=== PATIENT | female | born 1960 | race Hispanic/Latino ===

== ENCOUNTER 2017-02-14 19:03 | Observation (INO) | payer MEDICAID ==
[2017-02-14] MEDS ORDERED: TDAP Vaccine 0.5 mL Syr IM ONE (19:30)
[2017-02-14] MEDS ORDERED: Bacitracin 500 Units/gm Oint Foilpak UD TOP ONE (19:30)
--- NOTE | 2017-02-14 19:38 | ED PDOC ---
Arrival/HPI - General Chief Complaint: Trauma Time Seen by Provider: 02/14/17 19:07 Historian: Patient, EMS - History of Present Illness Narrative History of Present Illness (Text): 02/14/17 19:36 -year-old male who presents via EMS for falls and alleged intoxication. She was found outside the house falling down the street since she has been a small amount but she's not sure how she got here she has not from this challenge is not usually in [place]. She has a history of seizures and diabetes she denies any drug use does endorse moment of alcohol but she will not say how much. She has moderate abrasions to her face left facial pain Past Medical History - Infectious Disease Hx of Infectious Diseases: None - Reproductive Menopause: Yes - Neurological Hx Seizures: Yes - Psychiatric Hx Substance Use: No - Anesthesia Hx Anesthesia Reactions: No Family/Social History Smoking Status: Unknown If Ever Smoked Hx Alcohol Use: Yes Frequency of alcohol use: Socially Hx Substance Use: No Allergies/Home Meds Allergies/Adverse Reactions: Allergies No Known Allergies Allergy (Unverified 02/14/17 19:19) Home Medications: Home Meds Medication Instructions Recorded Confirmed Ibuprofen [Motrin Tab] 800 mg PO TID 02/14/17 02/14/17 Metformin ER [Glucophage XR] 500 mg PO BID 02/14/17 02/14/17 Ondansetron ODT [Zofran ODT] 4 mg PO Q8 02/14/17 02/14/17 Phenytoin Sodium Extended 100 mg PO TID 02/14/17 02/14/17 [Phenytoin Sodium Extended] carBAMazepine [Tegretol] 200 mg PO BID 02/14/17 02/14/17 Physical Exam Vital Signs Temp Pulse Resp BP Pulse Ox 02/15/17 02:53 98.8 F 99 H 20 162/75 H 94 L 02/14/17 19:16 98 F 120 H 20 161/107 H 98 Finger Stick Blood Glucose: 131 Medical Decision Making ED Course and Treatment: 02/15/17 01:56 MAXILLOFACIAL W/O CONTRAST: Creator : Meri Andrade FINDINGS: Prior left orbital floor fracture with hyperdense mesh placement. Subcutaneous soft tissue swelling left frontal and left maxillary regions. Slight angulation of the nasal bones to the left felt to be chronic. There is no significant fluid in the sinuses or mastoid air cells. No acute fractures. IMPRESSION: No acute fractures. 02/15/17 02:00 CT Head Without Intravenous Contrast: Creator : Meri Andrade FINDINGS: There is subcutaneous soft tissue swelling left maxillary and left frontal regions. There is sulcal prominence suggestive of atrophy. There is a left frontal parietal subdural collection measuring 9-11 mm in width. The majority of the collection is isodense to brain however there is an area of increased density posteriorly supportive of acute blood. No mass effect or midline shift. No intraparenchymal hemorrhage. No intracranial edema. No fluid in the sinuses or mastoid air cells. No depressed fractures. IMPRESSION: Left parietal subdural collection, the majority of which is isodense to brain however there is also a hyperdense component. The first possibility would be chronic collection with acute hemorrhage due to acute trauma. The other possibility is that the patient's reported trauma occurred several days prior with the densities representing evolution of subacute blood. 02/15/17 02:03 CERVICAL SPINE W/O CONTRAST: Creator : Meri Andrade FINDINGS: Right humeral plate and screws. There is no prevertebral soft tissue swelling. There are degenerative changes in the osseous structures with osteophyte formation. There is left Articular facet joint hypertrophy C2-3. The facet joints are well aligned. The vertebral body height is well maintained. No subluxation. No fractures. Small lymph nodes are noted throughout the neck. IMPRESSION: No acute injury. 02/15/17 02:[address] Sampson, who reccomends a repeat CT scan to watch for evolution. 02/15/17 03:04 Case discussed with technical operations vice president. Will admit to hospitalist care. - Lab Interpretations Lab Results: 02/14/17 20:15 02/14/17 20:15 Lab Results 02/14/17 20:15: Phenytoin < 3 L, Carbamazepine < 3 L 02/14/17 20:15: Alcohol, Quantitative 290 H 02/14/17 20:15: Sodium 146, Potassium 4.5, Chloride 103, Carbon Dioxide 19 L, Anion Gap 29 H, BUN 16, Creatinine 0.6 L, Est GFR ( Amer) > 60, Est GFR ( Non-Af Amer) > 60, Random Glucose 132 H, Calcium 9.8, Total Bilirubin 0.6, AST 73 H, ALT 41, Alkaline Phosphatase 116, Total Protein 7.8, Albumin 5.1 H, Globulin 2.6, Albumin/Globulin Ratio 2.0 H 02/14/17 20:15: PT 11.3, INR 1.05, APTT 24.7 02/14/17 20:15: WBC 9.1, RBC 4.00, Hgb 13.9, Hct 41.0, MCV 102.5, MCH 34.8, MCHC 33.9, RDW 15.1 H, Plt Count 222, MPV 9.7, Gran % 66.5, Lymph % (Auto) 24.2 , [place] % (Auto) 7.1 H, Eos % (Auto) 1.0 L, Baso % (Auto) 1.2, Gran # 6.06, Lymph # 2.2, [place] # 0.7 H, Eos # 0.1, Baso # 0.11 - RAD Interpretation Radiology Orders: 02/14/17 19:22 CERVICAL SPINE W/O CONTRAST [CT] Stat HEAD W/O CONTRAST [CT] Stat 02/14/17 19:29 MAXILLOFACIAL W/O CONTRAST [CT] Stat - Medication Orders Current Medication Orders: Discontinued Medications Bacitracin (Bacitracin) 3 ea TOP ONCE ONE Stop: 02/14/17 19:31 Last Admin: 02/14/17 21:22 Dose: 3 ea Sodium Chloride (Sodium Chloride 0.9%) 1,000 mls @ 999 mls/hr IV .Q1H1M STA Stop: 02/14/17 22:01 Last Admin: 02/14/17 21:21 Dose: 999 mls/hr eMAR Start Stop Document 02/14/17 21:21 SC (Rec: 02/14/17 21:22 SC [id number]) Intravenous Solution Start Date 02/14/17 Start Time 21:21 End Date 02/14/17 End time 22:22 Total Infusion Time 61 Phenytoin 1,000 mg/ Sodium (Chloride) 200 mls @ 240 mls/hr IVPB STAT STA Stop: 02/15/17 00:52 Last Admin: 02/15/17 01:46 Dose: 240 mls/hr eMAR Start Stop Document 02/15/17 01:46 SC (Rec: 02/15/17 02:46 SC [id number]) Intravenous Solution Start Date 02/15/17 Start Time 01:46 End Date 02/15/17 End time 02:46 Total Infusion Time 60 Lorazepam (Ativan) 1 mg IVP ONCE ONE PRN Reason: Protocol Stop: 02/14/17 22:03 Last Admin: 02/14/17 22:12 Dose: 1 mg IVP Administration Document 02/14/17 22:12 SC (Rec: 02/14/17 22:12 SC [id number]) Charges for Administration # of IVP Administrations 1 Lorazepam (Ativan) 2 mg PO ONCE ONE PRN Reason: Protocol Stop: 02/14/17 23:51 Last Admin: 02/15/17 01:02 Dose: 2 mg Tetanus/Reduced Diphtheria/Acell Pertussis (Boostrix Vaccine Inj) 0.5 ml IM .ONCE ONE Stop: 02/14/17 19:31 Last Admin: 02/14/17 22:11 Dose: 0.5 ml MAR Immunization Data Document 02/14/17 22:11 SC (Rec: 02/14/17 22:11 SC [id number]) Immunization Data Opt out of sending immunization data to No respository? Suppress immunization data to other No providers from registry? Vaccine Eligibility Yes Vaccine Information Sheet Given Yes Informed Consent Given Yes Vaccine Lot Number [id number] Site Given Right Deltoid Route Intramuscular Immunization Units ml Disposition/Present on Arrival - Present on Arrival History of DVT/PE: No History of Uncontrolled Diabetes: No Urinary Catheter: No History of Decub. Ulcer: No History Surgical Site Infection Following: None - Disposition Referrals: Rajwinder Cm MD [Primary Care Provider] - Follow up with primary Forms: [employer] ([place])
[2017-02-14 20:28] LABS: BASO # 0.11 K/mm3 (0.0-2.0); BASO % 1.2 % (0.0-3.0); EOS # 0.1 (0.0-0.7); GRAN # 6.06 (1.4-6.5); GRAN % 66.5 % (50.0-68.0); LYMPH # 2.2 (1.2-3.4); LYMPH % 24.2 % (22.0-35.0); MEAN CELL VOLUME 102.5 fl (80.0-105.0); MEAN CORPUSCULAR HEMOGLOBIN 34.8 pg (25.0-35.0); MEAN CORPUSCULAR HGB CONC 33.9 g/dl (31.0-37.0); MEAN PLATELET VOLUME 9.7 fl (7.0-11.0); MONO # 0.7 (0.1-0.6); MONO % 7.1 % (1.0-6.0); RED CELL DISTRIBUTION WIDTH 15.1 % (11.5-14.5); WHITE BLOOD COUNT 9.1 10^3/ul (4.5-11.0)
[2017-02-14 20:38] LABS: INR 1.05 (0.93-1.08); PARTIAL THROMBOPLASTIN TIME 24.7 Seconds (23.7-30.8)
[2017-02-14 20:41] LABS: ALKALINE PHOSPHATASE 116 U/L (38-126); ALT/SGPT 41 U/L (7-56); AST/SGOT 73 U/L (14-36); BILIRUBIN,TOTAL 0.6 mg/dL (0.2-1.3); BLOOD UREA NITROGEN 16 mg/dL (7-21); CALCIUM 9.8 mg/dL (8.4-10.5); CARBON DIOXIDE 19 mmol/L (21-33); CHLORIDE 103 mmol/L (95-110); GFR AFRICAN-AMERICAN > 60; GLUCOSE,RANDOM 132 mg/dL (70-110); POTASSIUM 4.5 mmol/L (3.6-5.0); SODIUM 146 mmol/L (132-148); TOTAL PROTEIN 7.8 g/dL (5.8-8.3)
[2017-02-14 20:43] LABS: CARBAMAZEPINE < 3 ug/mL (4.0-10.0)
[2017-02-14] MEDS ORDERED: Sodium Chloride 0.9% 1,000 ML IV STA (21:01)
[2017-02-15] MEDS ORDERED: PHENYTOIN IVPB STA (00:03)
[2017-02-15] MEDS ORDERED: SODIUM CHLORIDE 0.9% IVPB STA (00:03)
--- NOTE | 2017-02-15 00:59 | CT ---
EXAM: CT Head Without Intravenous Contrast EXAM DATE/TIME: 02/14/2017 7:22 PM CLINICAL HISTORY: 57 years old, female; Injury or trauma; Fall; Initial encounter; Concussion / head injury; Additional info: Fall trauma TECHNIQUE: Axial computed tomography images of the head/brain without intravenous contrast. All CT scans at this facility use one or more dose reduction techniques, viz.: automated exposure control; ma/kV adjustment per patient size (including targeted exams where dose is matched to indication; i.e. head); or iterative reconstruction technique. COMPARISON: No relevant prior studies available. FINDINGS: There is subcutaneous soft tissue swelling left maxillary and left frontal regions. There is sulcal prominence suggestive of atrophy. There is a left frontal parietal subdural collection measuring 9-11 mm in width. The majority of the collection is isodense to brain however there is an area of increased density posteriorly supportive of acute blood. No mass effect or midline shift. No intraparenchymal hemorrhage. No intracranial edema. No fluid in the sinuses or mastoid air cells. No depressed fractures. IMPRESSION: Left parietal subdural collection, the majority of which is isodense to brain however there is also a hyperdense component. The first possibility would be chronic collection with acute hemorrhage due to acute trauma. The other possibility is that the patient's reported trauma occurred several days prior with the densities representing evolution of subacute blood.
--- NOTE | 2017-02-15 01:11 | CT ---
EXAM: CT Maxillofacial Without Intravenous Contrast EXAM DATE/TIME: 02/14/2017 7:29 PM CLINICAL HISTORY: 57 years old, female; Injury or trauma; Fall; Initial encounter; Abrasion; Cheek bone; Left; Additional info: Fall left face TECHNIQUE: Axial computed tomography images of the face without intravenous contrast. All CT scans at this facility use one or more dose reduction techniques, viz.: automated exposure control; ma/kV adjustment per patient size (including targeted exams where dose is matched to indication; i.e. head); or iterative reconstruction technique. Coronal and sagittal reformatted images were created and reviewed. COMPARISON: No relevant prior studies available. FINDINGS: Prior left orbital floor fracture with hyperdense mesh placement. Subcutaneous soft tissue swelling left frontal and left maxillary regions. Slight angulation of the nasal bones to the left felt to be chronic. There is no significant fluid in the sinuses or mastoid air cells. No acute fractures. IMPRESSION: No acute fractures.
--- NOTE | 2017-02-15 01:20 | CT ---
EXAM: CT Cervical Spine Without Intravenous Contrast EXAM DATE/TIME: 02/14/2017 7:22 PM CLINICAL HISTORY: 57 years old, female; Injury or trauma; Fall; Initial encounter; Sprain or strain, cervical ligaments TECHNIQUE: Axial computed tomography images of the cervical spine without intravenous contrast. All CT scans at this facility use one or more dose reduction techniques, viz.: automated exposure control; ma/kV adjustment per patient size (including targeted exams where dose is matched to indication; i.e. head); or iterative reconstruction technique. Coronal and sagittal reformatted images were created and reviewed. COMPARISON: No relevant prior studies available. FINDINGS: Right humeral plate and screws. There is no prevertebral soft tissue swelling. There are degenerative changes in the osseous structures with osteophyte formation. There is left Articular facet joint hypertrophy C2-3. The facet joints are well aligned. The vertebral body height is well maintained. No subluxation. No fractures. Small lymph nodes are noted throughout the neck. IMPRESSION: No acute injury.
[2017-02-15 02:54] VITALS: BP 162/75; TEMP 98.8; O2SAT 94
[2017-02-15] MEDS ORDERED: Multivitamin (MVI) 10 ML, Thiamine 100 MG, Folic Acid 1 MG in Sodium Chloride 0.9% 1,00... IV ONE (03:51)
--- NOTE | 2017-02-15 04:19 | CP.PCM.HP ---
Addendum entered and electronically signed by Sp Walker DO 05:25: Correction for PPX: -Protonix/SCD's - Despite a Michelle score of 6, patient is here for an acute vs subacute intracranial bleed, mechanical PPXS is indicated Addendum entered and electronically signed by Sp Walker DO 05:21: PPX - Heparin/Protonix - Michelle Score 6 Original Note: <Sp Walker - Last Filed: 02/15/17 04:03> History of Present Illness - History of Present Illness History of Present Illness: H/P For IM - TKS DO, PGY-1 CC: EtOH Intoxication and Fall HPI: 57 F w/ PMHx pertinent for seizure disorder and alcohol abuse presents s/p a fall with EtOH intoxication. Patient states that she was sitting on the steps of where she lives in [place], [place] earlier today around 2PM after drinking about a fifth of hard liquor. Pt states that she thinks she fell down the steps and passed out, then the next thing she remembers is that she woke up on the street with two women looking over her. She asked them where she was and they informed her that she was in [place]. RE: her fall, pt states that she also fell about a week ago and was admitted to [facility], where she stayed for two days and was told that she had an acute intracranial bleed. She does not know what treatment she was given there. At present, patient complains only of a headache and is uncomfortable in her bed. Pt denies f/ch/cp/sob/n/v/d/dysuria/frequency/urgency/hematuria/hematochezia/ hematemesis. No further complaints. PSHx: Arm surgery - broke her arm after a seizure PMHx: Seizure disorder, Chronic HAs, DM All: NKDA SocHx: + EtOH; denies tobacco, illicits Hosp: Recent hospitalization at [facility] for a fall FamHx: Bone CA Meds: Carbamazepine 200 mg po bid; Phenytoin 100 mg po tid; Ibuprofen 800 po tid; Metformin 500 po bid ROS: Const: pt denies fever, chills, generalized weakness Hand Neck: +heart ENT: pt denies dysphagia, otalgia, hearing deficit, rhinorrhea Eyes: pt denies sudden loss of vision, diplopia, blurred vision MSK: pt denies muscle stiffness, joint pain, extremity cramping Cardio: pt denies sob, heart murmur, cp Pulm: pt denies cough, hemoptysis, wheeze GI: pt denies loss of appetite, abdominal pain, constipation, melena, n/v/d : pt denies burning on urination, urinary frequency, hematuria, urinary urgency Neuro: + see hpi Derm: pt denies skin changes, lesions, nail changes Endo: pt denies intolerance to heat/cold, diaphoresis, night sweats, polydipsia Psych: + pt upset about her sibling in hospital with bone CA; +pt agitated 2/ 2 discomfort Present on Admission - Present on Admission Any Indicators Present on Admission: No Past Patient History - Infectious Disease Hx of Infectious Diseases: None - Past Social History Smoking Status: Unknown If Ever Smoked - NEUROLOGICAL Hx Seizures: Yes - PSYCHIATRIC Hx Substance Use: No - ANESTHESIA Hx Anesthesia Reactions: No Meds Allergies/Adverse Reactions: Allergies Allergy/AdvReac Type Severity Reaction Status Date / Time No Known Allergies Allergy Unverified 02/14/17 19:19 Physical Exam - Additional Findings Additional findings: Phys Exam: VS as below Const: + Unkept, obese woman; a&o x 4, nad Head/Neck: + Abrasion on left side of face; neck supple, no jvd, trachea midline, carotid midline, no cervical/head mass Eyes: tim, nonicteric sclera, eom intact ENT: auditory acuity grossly intact, throat not congested, no nasal deformity Cardio: rrr, no m/r/g, no carotid bruit, nml s1, s2 Pulm: no accessory muscle use, equal nml breath sounds bilaterally, ctab Abd: s/nt/nd, nbs x 4 q, no palpable masses Derm: no rashes, no ulcers, no lesions Extr: + Pt has mild asterixis in b/l UE; +Mild abrasions on b/l LE; no edema , no cyanosis, no calf tenderness, no lesions, no varicosities Neuro: cn II-XII grossly intact, ue and le 5/5 muscle strength bilaterally, no los ue, le bilaterally and core Results - Vital Signs Recent Vital Signs: Last Vital Signs Temp 98.8 F 02/15/17 02:53 Pulse 99 H 02/15/17 02:53 Resp 20 02/15/17 02:53 BP 162/75 H 02/15/17 02:53 Pulse Ox 94 L 02/15/17 02:53 - Labs Result Diagrams: 02/14/17 20:15 02/14/17 20:15 Labs: Laboratory Results - last 24 hr 02/14/17 02/14/17 02/14/17 20:15 20:15 20:15 WBC 9.1 RBC 4.00 Hgb 13.9 Hct 41.0 MCV 102.5 MCH 34.8 MCHC 33.9 RDW 15.1 H Plt Count 222 MPV 9.7 Gran % 66.5 Lymph % (Auto) 24.2 [place] % (Auto) 7.1 H Eos % (Auto) 1.0 L Baso % (Auto) 1.2 Gran # 6.06 Lymph # 2.2 [place] # 0.7 H Eos # 0.1 Baso # 0.11 PT 11.3 INR 1.05 APTT 24.7 Sodium 146 Potassium 4.5 Chloride 103 Carbon Dioxide 19 L Anion Gap 29 H BUN 16 Creatinine 0.6 L Est GFR ( Amer) > 60 Est GFR (Non-Af Amer) > 60 Random Glucose 132 H Calcium 9.8 Total Bilirubin 0.6 AST 73 H ALT 41 Alkaline Phosphatase 116 Total Protein 7.8 Albumin 5.1 H Globulin 2.6 Albumin/Globulin Ratio 2.0 H Phenytoin Carbamazepine Alcohol, Quantitative 02/14/17 02/14/17 20:15 20:15 WBC RBC Hgb Hct MCV MCH MCHC RDW Plt Count MPV Gran % Lymph % (Auto) [place] % (Auto) Eos % (Auto) Baso % (Auto) Gran # Lymph # [place] # Eos # Baso # PT INR APTT Sodium Potassium Chloride Carbon Dioxide Anion Gap BUN Creatinine Est GFR ( Amer) Est GFR (Non-Af Amer) Random Glucose Calcium Total Bilirubin AST ALT Alkaline Phosphatase Total Protein Albumin Globulin Albumin/Globulin Ratio Phenytoin < 3 L Carbamazepine < 3 L Alcohol, Quantitative 290 H Assessment & Plan - Assessment and Plan (Free Text) Assessment: A/P 57 F with PMHx of seizure disorder presenting s/p fall with chronic VS acute intracranial bleeding. Acute EtOH intoxication. Mechanical Fall - CT Spine and CT Maxillofacial are negative - CT Head: Shows L parietal subdural blood collection. Two possibilities: patient fell several days prior, with the densities representing evolution of subacute blood; OR, chronic blood collection with acute hemorrhage due to acute trauma Given the patient's history, seems to be the former, a result of her fall at [facility] - Per ED physician, the neurosurgeon, Dr. Cerda, has said to observe her overnight. If no acute changes, she is stable to go home. Acute EtOH Intoxication - Banana BaL - CIWA, Seizure, Fall, Aspiration precautions - Ativan 2 q2 PRN; Ativan 2 q6 MARICARMEN; Librium 25 q6 MARICARMEN - AM Labs: CBC, CMP, Mg, Phos Hx/O Seizure D/o - Continue home Carbamazepine - 200 mg PO bid - Continue home Phenytoin - 100 mg po tid Hx/O DM - Hold Metformin 500 mg PO bid - RISS Low Hx/O Headaches - Hold home Ibuprofen 800 mg PO TID - Ibuprofen 400 PRN TKS, DO PGY-1 d/w Dr. Phillips <Alan,Roni Q - Last Filed: 02/15/17 05:39> Results - Vital Signs Recent Vital Signs: Last Vital Signs Temp 98.8 F 02/15/17 02:53 Pulse 99 H 02/15/17 02:53 Resp 20 02/15/17 02:53 BP 162/75 H 02/15/17 02:53 Pulse Ox 94 L 02/15/17 02:53 - Labs Result Diagrams: 02/14/17 20:15 02/14/17 20:15 Attending/Attestation - Attestation I have personally seen and examined this patient.: Yes I have fully participated in the care of the patient.: Yes I have reviewed all pertinent clinical information: Yes Notes (Text): 02/15/17 05:38 I agree with the above note and exam by the resident with the addition/ exception of the followin57 y/o female with a PMHx Etoh abuse, Seizure disorder presented to the ED acutely intoxicated unaware of how she arrived. Recently seen and evaluated at [facility] for SDH which she is found to still have on CT Head. Will observe and monitor for etoh withdrawal. No focal defecits present.
[2017-02-15 05:53] LABS: BASO # 0.07 K/mm3 (0.0-2.0); BASO % 0.7 % (0.0-3.0); EOS # 0.1 (0.0-0.7); EOS % 1.2 % (1.5-5.0); GRAN # 7.18 (1.4-6.5); GRAN % 73.7 % (50.0-68.0); HEMATOCRIT 37.7 % (36.0-48.0); LYMPH # 1.6 (1.2-3.4); LYMPH % 16.5 % (22.0-35.0); MEAN CELL VOLUME 102.2 fl (80.0-105.0); MEAN CORPUSCULAR HEMOGLOBIN 34.4 pg (25.0-35.0); MEAN CORPUSCULAR HGB CONC 33.7 g/dl (31.0-37.0); MEAN PLATELET VOLUME 10.6 fl (7.0-11.0); MONO # 0.8 (0.1-0.6); MONO % 7.9 % (1.0-6.0); RED CELL DISTRIBUTION WIDTH 15.1 % (11.5-14.5); WHITE BLOOD COUNT 9.8 10^3/ul (4.5-11.0)
[2017-02-15] MEDS ORDERED: Pantoprazole 40 mg EC Tab PO SCH (06:00)
[2017-02-15 08:05] VITALS: PULSE 114
[2017-02-15 08:29] LABS: ALB/GLOB RATIO 1.8 (1.1-1.8); ALKALINE PHOSPHATASE 104 U/L (38-126); ALT/SGPT 43 U/L (7-56); AST/SGOT 51 U/L (14-36); BILIRUBIN,TOTAL 1.2 mg/dL (0.2-1.3); BLOOD UREA NITROGEN 15 mg/dL (7-21); CALCIUM 8.5 mg/dL (8.4-10.5); CARBON DIOXIDE 22 mmol/L (21-33); CHLORIDE 100 mmol/L (95-110); GFR AFRICAN-AMERICAN > 60; GLUCOSE,RANDOM 136 mg/dL (70-110); PHOSPHOROUS 4.1 mg/dL (2.5-4.5); POTASSIUM 4.2 mmol/L (3.6-5.0); SODIUM 139 mmol/L (132-148); TOTAL PROTEIN 7.2 g/dL (5.8-8.3)
--- NOTE | 2017-02-15 08:56 | CP.PCM.PN ---
Subjective - Date & Time of Evaluation Date of Evaluation: 02/15/17 Time of Evaluation: 08:54 - Subjective Subjective: this woman was seen on 02/03 at [facility] She signed out AMA Had CSDH then which was stable Admitted last night under different name(no middle initial) CT in comparison same last night as was on 02/03 This is small and does not need evacuation no interverntion indicated futher managment as per other problems Objective - Vital Signs/Intake and Output Vital Signs (last 24 hours): Temp Pulse Resp BP Pulse Ox 98.8 F 114 H 20 162/75 H 94 L 02/15/17 02:53 02/15/17 07:00 02/15/17 02:53 02/15/17 02:53 02/15/17 02:53 - Medications Medications: Current Medications Carbamazepine (Tegretol) 200 mg PO BID MARICARMEN PRN Reason: Protocol Chlordiazepoxide (Librium) 25 mg PO Q6 MARICARMEN PRN Reason: Taper Stop: 02/19/17 03:14 Last Admin: 02/15/17 06:13 Dose: Not Given Multivitamins/Vitamin C 10 ml/Thiamine HCl 100 mg/ Folic Acid 1 mg/ Sodium Chloride 1,011.2 mls @ 100 mls/hr IV .Q10H7M ONE Stop: 02/15/17 13:57 Ibuprofen (Motrin Tab) 600 mg PO Q6H PRN PRN Reason: Headache Insulin Human Regular (Humulin R Med) 0 units SC ACHS MARICARMEN PRN Reason: Protocol Lorazepam (Ativan) 2 mg IVP Q2 PRN; Protocol PRN Reason: Agitation Last Admin: 02/15/17 06:00 Dose: 2 mg Ondansetron HCl (Zofran Odt) 4 mg PO Q8 [facility] Last Admin: 02/15/17 06:00 Dose: 4 mg Pantoprazole Sodium (Protonix Ec Tab) 40 mg PO 0600 MARICARMEN Phenytoin Sodium (Dilantin) 100 mg PO TID [facility] - Labs Labs: 02/15/17 05:20 02/15/17 08:15 PT 11.3 Seconds (9.9-11.8) 02/14/17 20:15 INR 1.05 (0.93-1.08) 02/14/17 20:15 APTT 24.7 Seconds (23.7-30.8) 02/14/17 20:15
[2017-02-15] MEDS ORDERED: Magnesium Sulfate 2 GM in Sodium Chloride 0.9% 100 ML IVPB ONE (09:16)
[2017-02-15] MEDS ORDERED: levETIRAcetam 500 MG in Sodium Chloride 0.9% 100 ML IV ONE (09:18)
[2017-02-15] MEDS ORDERED: levETIRAcetam 500mg IVPB 500 MG/100 ML BAG IVPB ONE (09:30)
[2017-02-15] MEDS ORDERED: levETIRAcetam 500mg IVPB 500 MG/100 ML BAG IVPB SCH (10:00)
--- NOTE | 2017-02-15 10:15 | CP.PCM.CON ---
<Cristiana Valencia - Last Filed: 02/15/17 10:09> History of Present Illness - History of Present Illness History of Present Illness: Neurology Consult Note for Carlo Pizarro PGY2 This is a 57Y F with PMH seizure disorder, migraines, EtOH abuse, and medication non-compliance who was admitted for subdural hematoma. Patient reports she was drinking hard liquor yesterday a block away from her house and suddenly woke up on the ground. She has some bruising on L side of face, but does not remember passing out. She was drinking alone. She denies any tongue biting, loss of bowel/bladder function, vision changes, or weakness. She was recently at [facility] under another name for a L subdural hematoma in which she signed out AMA. Patient reports she has not been taking her medications. Her sister is sick and in the hospital and drinks because she feels depressed. She denies homicidal or suicidal ideation. This am she denies having any CP, SOB, n/ v/d, numbness/tingling, fever/chills, vision changes or headache. PMH: seizure disorder, migraines, EtOH abuse, and medication non-compliance PSH: ORIF of R arm Home meds: include carbamazapine 200 BID and Phenytoin 100mg TID All: NKDA SH: + alcohol abuse, denies tobacco or drug use Neurologist: Dr. Hinkle Review of Systems - Review of Systems All systems: reviewed and no additional remarkable complaints except Review of Systems: + seizure, depression Past Patient History - Infectious Disease Hx of Infectious Diseases: None - Past Social History Smoking Status: Unknown If Ever Smoked Alcohol: > 2 Drinks/Day Drugs: Denies Home Situation {Lives}: Alone - NEUROLOGICAL Hx Seizures: Yes - PSYCHIATRIC Hx Substance Use: No - ANESTHESIA Hx Anesthesia Reactions: No Meds Allergies/Adverse Reactions: Allergies Allergy/AdvReac Type Severity Reaction Status Date / Time No Known Allergies Allergy Unverified 02/14/17 19:19 - Medications Medications: Current Medications Carbamazepine (Tegretol) 200 mg PO BID MARICARMEN PRN Reason: Protocol Last Admin: 02/15/17 09:17 Dose: 200 mg Chlordiazepoxide (Librium) 25 mg PO Q6 MARICARMEN PRN Reason: Taper Stop: 02/19/17 03:14 Last Admin: 02/15/17 06:13 Dose: Not Given Multivitamins/Vitamin C 10 ml/Thiamine HCl 100 mg/ Folic Acid 1 mg/ Sodium Chloride 1,011.2 mls @ 100 mls/hr IV .Q10H7M ONE Stop: 02/15/17 13:57 Magnesium Sulfate 2 gm/ Sodium (Chloride) 104 mls @ 102 mls/hr IVPB ONCE ONE Stop: 02/15/17 10:17 Levetiracetam (Keppra 500mg Ivpb) 500 mg in 100 mls @ 400 mls/hr IVPB Q12 MARICARMEN Ibuprofen (Motrin Tab) 600 mg PO Q6H PRN PRN Reason: Headache Insulin Human Regular (Humulin R Med) 0 units SC ACHS MARICARMEN PRN Reason: Protocol Lorazepam (Ativan) 2 mg IVP Q2 PRN; Protocol PRN Reason: Agitation Last Admin: 02/15/17 09:16 Dose: 2 mg Ondansetron HCl (Zofran Odt) 4 mg PO Q8 [facility] Last Admin: 02/15/17 06:00 Dose: 4 mg Pantoprazole Sodium (Protonix Ec Tab) 40 mg PO 0600 [facility] Physical Exam - Constitutional Appears: No Acute Distress - Head Exam Head Exam: NORMAL INSPECTION, NORMOCEPHALIC - Eye Exam Eye Exam: Periorbital swelling (on L ), PERRL Pupil Exam: NORMAL ACCOMODATION, PERRL - ENT Exam ENT Exam: Mucous Membranes Moist - Respiratory Exam Respiratory Exam: Clear to Auscultation Bilateral, NORMAL BREATHING PATTERN. absent: Rales, Rhonchi, Wheezes - Cardiovascular Exam Cardiovascular Exam: REGULAR RHYTHM, +S1, +S2. absent: Gallop, Systolic Murmur - GI/Abdominal Exam GI & Abdominal Exam: Distended, Normal Bowel Sounds, Soft. absent: Rebound, Rigid, Tenderness - Extremities Exam Extremities exam: Positive for: normal inspection. Negative for: calf tenderness, pedal edema - Neurological Exam Neurological exam: Alert, CN II-XII Intact, Oriented x3 Additional comments: + asterixis - Psychiatric Exam Psychiatric exam: Normal Affect, Normal Mood - Skin Skin Exam: Abrasion (on L cheek), Dry, Normal Color, Warm Results - Vital Signs Recent Vital Signs: Last Vital Signs Temp 98.8 F 02/15/17 02:53 Pulse 114 H 02/15/17 07:00 Resp 20 10/06/17 02:53 BP 162/75 H 02/15/17 02:53 Pulse Ox 94 L 02/15/17 02:53 - Labs Result Diagrams: 02/15/17 05:20 02/15/17 08:15 Labs: Laboratory Results - last 24 hr 02/15/17 02/15/17 02/15/17 05:20 08:15 08:43 WBC 9.8 RBC 3.69 Hgb 12.7 Hct 37.7 MCV 102.2 MCH 34.4 MCHC 33.7 RDW 15.1 H Plt Count 210 MPV 10.6 Gran % 73.7 H Lymph % (Auto) 16.5 L [place] % (Auto) 7.9 H Eos % (Auto) 1.2 L Baso % (Auto) 0.7 Gran # 7.18 H Lymph # 1.6 [place] # 0.8 H Eos # 0.1 Baso # 0.07 Sodium 139 Potassium 4.2 Chloride 100 Carbon Dioxide 22 Anion Gap 21 H BUN 15 Creatinine 0.5 L Est GFR ( Amer) > 60 Est GFR (Non-Af Amer) > 60 POC Glucose (mg/dL) 155 H Random Glucose 136 H Calcium 8.5 Phosphorus 4.1 Magnesium 1.0 L* Total Bilirubin 1.2 AST 51 H D ALT 43 Alkaline Phosphatase 104 Total Protein 7.2 Albumin 4.6 Globulin 2.6 Albumin/Globulin Ratio 1.8 Assessment & Plan - Assessment and Plan (Free Text) Assessment: This is a 57Y F with PMH seizure disorder, migraines, EtOH abuse, and medication non-compliance who was admitted for L subdural hematoma seen on head CT. Head CT was reviewed by Dr. Sampson who saw this patient in [facility] on and compared to previous head CT and saw no change. Plan: - Continue Carbamazepine 200 BID - Stop Phenytoin due to transaminitis and alcohol abuse - Start Keppra 500mg BID and pt will continue upon d/c - Pt counseled on alcohol cessation and medication compliance - No surgical intervention as per neurosurgery - Continue [facility] protocol - Physical therapy Patient will follow up with neurologist, Dr. Hinkle upon d/c. No further neurologic work up is needed at this time. Thank you for this consultation. Please re-consult if needed. Case seen, discussed and reviewed with Dr. Laughlin. Carlo Valencia PGY2 - Date & Time Date: 02/15/17 Time: 10:22 <Primitivo Laughlin - Last Filed: 02/15/17 13:36> Meds - Medications Medications: Current Medications Carbamazepine (Tegretol) 200 mg PO BID MARICARMEN PRN Reason: Protocol Last Admin: 02/15/17 09:17 Dose: 200 mg Chlordiazepoxide (Librium) 25 mg PO Q6 [facility]ARM[facility] PRN Reason: Taper Stop: 02/19/17 03:14 Last Admin: 02/15/17 11:38 Dose: 25 mg Multivitamins/Vitamin C 10 ml/Thiamine HCl 100 mg/ Folic Acid 1 mg/ Sodium Chloride 1,011.2 mls @ 100 mls/hr IV .Q10H7M ONE Stop: 02/15/17 13:57 Levetiracetam (Keppra 500mg Ivpb) 500 mg in 100 mls @ 400 mls/hr IVPB Q12 [facility] Last Admin: 02/15/17 11:39 Dose: 400 mls/hr Ibuprofen (Motrin Tab) 600 mg PO Q6H PRN PRN Reason: Headache Insulin Human Regular (Humulin R Med) 0 units SC ACHS MARICARMEN PRN Reason: Protocol Last Admin: 02/15/17 12:13 Dose: Not Given Lorazepam (Ativan) 2 mg IVP Q2 PRN; Protocol PRN Reason: Agitation Last Admin: 02/15/17 09:16 Dose: 2 mg Ondansetron HCl (Zofran Odt) 4 mg PO Q8 [facility] Last Admin: 02/15/17 06:00 Dose: 4 mg Pantoprazole Sodium (Protonix Ec Tab) 40 mg PO 0600 [facility] Results - Vital Signs Recent Vital Signs: Last Vital Signs Temp 98.8 F 02/15/17 02:53 Pulse 114 H 02/15/17 07:00 Resp 20 02/15/17 02:53 BP 162/75 H 02/15/17 02:53 Pulse Ox 94 L 02/15/17 02:53 - Labs Result Diagrams: 02/15/17 05:20 02/15/17 08:15 Labs: Laboratory Results - last 24 hr 02/15/17 02/15/17 02/15/17 05:20 08:15 08:43 WBC 9.8 RBC 3.69 Hgb 12.7 Hct 37.7 MCV 102.2 MCH 34.4 MCHC 33.7 RDW 15.1 H Plt Count 210 MPV 10.6 Gran % 73.7 H Lymph % (Auto) 16.5 L [place] % (Auto) 7.9 H Eos % (Auto) 1.2 L Baso % (Auto) 0.7 Gran # 7.18 H Lymph # 1.6 [place] # 0.8 H Eos # 0.1 Baso # 0.07 Sodium 139 Potassium 4.2 Chloride 100 Carbon Dioxide 22 Anion Gap 21 H BUN 15 Creatinine 0.5 L Est GFR ( Amer) > 60 Est GFR (Non-Af Amer) > 60 POC Glucose (mg/dL) 155 H Random Glucose 136 H Calcium 8.5 Phosphorus 4.1 Magnesium 1.0 L* Total Bilirubin 1.2 AST 51 H D ALT 43 Alkaline Phosphatase 104 Total Protein 7.2 Albumin 4.6 Globulin 2.6 Albumin/Globulin Ratio 1.8 02/15/17 11:44 WBC RBC Hgb Hct MCV MCH MCHC RDW Plt Count MPV Gran % Lymph % (Auto) [place] % (Auto) Eos % (Auto) Baso % (Auto) Gran # Lymph # [place] # Eos # Baso # Sodium Potassium Chloride Carbon Dioxide Anion Gap BUN Creatinine Est GFR ( Amer) Est GFR (Non-Af Amer) POC Glucose (mg/dL) 128 H Random Glucose Calcium Phosphorus Magnesium Total Bilirubin AST ALT Alkaline Phosphatase Total Protein Albumin Globulin Albumin/Globulin Ratio Attending/Attestation - Attestation I have personally seen and examined this patient.: Yes I have fully participated in the care of the patient.: Yes I have reviewed all pertinent clinical information: Yes
[2017-02-15] MEDS: Insulin Reg-MEDIUM-Coverage SC SCH (12:13)
--- NOTE | 2017-02-15 14:31 | CP.PCM.DIS ---
<Nick Hlom - Last Filed: 02/15/17 14:47> Provider - Provider Date of Admission: 02/15/17 03:01 Attending physician: Sybil Greenfield MD Primary care physician: Rajwinder Cm MD Time Spent in preparation of Discharge (in minutes): 30 Hospital Course - Lab Results Lab Results: Most Recent Lab Values WBC 9.8 10^3/ul (4.5-11.0) 02/15/17 05:20 RBC 3.69 10^6/uL (3.5-6.1) 02/15/17 05:20 Hgb 12.7 g/dL (12.0-16.0) 02/15/17 05:20 Hct 37.7 % (36.0-48.0) 02/15/17 05:20 MCV 102.2 fl (80.0-105.0) 02/15/17 05:20 MCH 34.4 pg (25.0-35.0) 02/15/17 05:20 MCHC 33.7 g/dl (31.0-37.0) 02/15/17 05:20 RDW 15.1 % (11.5-14.5) H 02/15/17 05:20 Plt Count 210 10^3/uL (120.0-450.0) 02/15/17 05:20 MPV 10.6 fl (7.0-11.0) 02/15/17 05:20 Gran % 73.7 % (50.0-68.0) H 02/15/17 05:20 Lymph % (Auto) 16.5 % (22.0-35.0) L 02/15/17 05:20 [place] % (Auto) 7.9 % (1.0-6.0) H 02/15/17 05:20 Eos % (Auto) 1.2 % (1.5-5.0) L 02/15/17 05:20 Baso % (Auto) 0.7 % (0.0-3.0) 02/15/17 05:20 Gran # 7.18 (1.4-6.5) H 02/15/17 05:20 Lymph # 1.6 (1.2-3.4) 02/15/17 05:20 [place] # 0.8 (0.1-0.6) H 02/15/17 05:20 Eos # 0.1 (0.0-0.7) 02/15/17 05:20 Baso # 0.07 K/mm3 (0.0-2.0) 02/15/17 05:20 PT 11.3 Seconds (9.9-11.8) 02/14/17 20:15 INR 1.05 (0.93-1.08) 02/14/17 20:15 APTT 24.7 Seconds (23.7-30.8) 02/14/17 20:15 Sodium 139 mmol/L (132-148) 02/15/17 08:15 Potassium 4.2 mmol/L (3.6-5.0) 02/15/17 08:15 Chloride 100 mmol/L (95-110) 02/15/17 08:15 Carbon Dioxide 22 mmol/L (21-33) 02/15/17 08:15 Anion Gap 21 (10-20) H 02/15/17 08:15 BUN 15 mg/dL (7-21) 02/15/17 08:15 Creatinine 0.5 mg/dL (0.7-1.2) L 02/15/17 08:15 Est GFR ( Amer) > 60 02/15/17 08:15 Est GFR (Non-Af Amer) > 60 02/15/17 08:15 POC Glucose (mg/dL) 128 mg/dL (65-110) H 02/15/17 11:44 Random Glucose 136 mg/dL (70-110) H 02/15/17 08:15 Calcium 8.5 mg/dL (8.4-10.5) 02/15/17 08:15 Phosphorus 4.1 mg/dL (2.5-4.5) 02/15/17 08:15 Magnesium 1.0 mg/dL (1.7-2.2) L* 02/15/17 08:15 Total Bilirubin 1.2 mg/dL (0.2-1.3) 02/15/17 08:15 AST 51 U/L (14-36) H D 02/15/17 08:15 ALT 43 U/L (7-56) 02/15/17 08:15 Alkaline Phosphatase 104 U/L (38-126) 02/15/17 08:15 Total Protein 7.2 g/dL (5.8-8.3) 02/15/17 08:15 Albumin 4.6 g/dL (3.0-4.8) 02/15/17 08:15 Globulin 2.6 gm/dL 02/15/17 08:15 Albumin/Globulin Ratio 1.8 (1.1-1.8) 02/15/17 08:15 Phenytoin < 3 ug/mL (10-20) L 02/14/17 20:15 Carbamazepine < 3 ug/mL (4.0-10.0) L 02/14/17 20:15 Alcohol, Quantitative 290 mg/dL (0-10) H 02/14/17 20:15 - Hospital Course Hospital Course: 57F PMH of seizure disorder, etoh abuse, and multiple falls presented to [facility] [place] [place] ED s/p fall 2/2 probably EtOH intoxication. Pt states drinking EtOH on the [place] in [place], [place] at 2pm. CT scan was performed and noted subacute subdural hemorrhage. Neurosurgery and and Neurology were consulted. No acute surgical intervention at this time. Pt is neurologically intact, advised to not take Phenytoin while drinking. Pt desired to leave against medical advice 2/2 social issues. Pt was educated on the risks and benefits of leaving at this time w/o being medically cleared. Stated that she is a high risk for a subsequent fall. Pt understands and appreciates leaving against medical advice can increase his risk of both morbidity and mortality. Discharge Exam - Head Exam Head Exam: NORMAL INSPECTION, NORMOCEPHALIC Discharge Plan - Follow Up Plan Condition: GOOD Disposition: AGAINST MEDICAL ADVICE Referrals: Rajwinder Cm MD [Primary Care Provider] - <Kiran Carmichael - Last Filed: 02/16/17 10:55> Provider - Provider Date of Admission: 02/15/17 03:01 Attending physician: Sybil Greenfield MD Primary care physician: Rajwinder Cm MD Hospital Course - Lab Results Lab Results: Most Recent Lab Values WBC 9.8 10^3/ul (4.5-11.0) 02/15/17 05:20 RBC 3.69 10^6/uL (3.5-6.1) 02/15/17 05:20 Hgb 12.7 g/dL (12.0-16.0) 02/15/17 05:20 Hct 37.7 % (36.0-48.0) 02/15/17 05:20 MCV 102.2 fl (80.0-105.0) 02/15/17 05:20 MCH 34.4 pg (25.0-35.0) 02/15/17 05:20 MCHC 33.7 g/dl (31.0-37.0) 02/15/17 05:20 RDW 15.1 % (11.5-14.5) H 02/15/17 05:20 Plt Count 210 10^3/uL (120.0-450.0) 02/15/17 05:20 MPV 10.6 fl (7.0-11.0) 02/15/17 05:20 Gran % 73.7 % (50.0-68.0) H 02/15/17 05:20 Lymph % (Auto) 16.5 % (22.0-35.0) L 02/15/17 05:20 [place] % (Auto) 7.9 % (1.0-6.0) H 02/15/17 05:20 Eos % (Auto) 1.2 % (1.5-5.0) L 02/15/17 05:20 Baso % (Auto) 0.7 % (0.0-3.0) 02/15/17 05:20 Gran # 7.18 (1.4-6.5) H 02/15/17 05:20 Lymph # 1.6 (1.2-3.4) 02/15/17 05:20 [place] # 0.8 (0.1-0.6) H 02/15/17 05:20 Eos # 0.1 (0.0-0.7) 02/15/17 05:20 Baso # 0.07 K/mm3 (0.0-2.0) 02/15/17 05:20 PT 11.3 Seconds (9.9-11.8) 02/14/17 20:15 INR 1.05 (0.93-1.08) 02/14/17 20:15 APTT 24.7 Seconds (23.7-30.8) 02/14/17 20:15 Sodium 139 mmol/L (132-148) 02/15/17 08:15 Potassium 4.2 mmol/L (3.6-5.0) 02/15/17 08:15 Chloride 100 mmol/L (95-110) 02/15/17 08:15 Carbon Dioxide 22 mmol/L (21-33) 02/15/17 08:15 Anion Gap 21 (10-20) H 02/15/17 08:15 BUN 15 mg/dL (7-21) 02/15/17 08:15 Creatinine 0.5 mg/dL (0.7-1.2) L 02/15/17 08:15 Est GFR ( Amer) > 60 02/15/17 08:15 Est GFR (Non-Af Amer) > 60 02/15/17 08:15 POC Glucose (mg/dL) 128 mg/dL (65-110) H 02/15/17 11:44 Random Glucose 136 mg/dL (70-110) H 02/15/17 08:15 Calcium 8.5 mg/dL (8.4-10.5) 02/15/17 08:15 Phosphorus 4.1 mg/dL (2.5-4.5) 02/15/17 08:15 Magnesium 1.0 mg/dL (1.7-2.2) L* 02/15/17 08:15 Total Bilirubin 1.2 mg/dL (0.2-1.3) 02/15/17 08:15 AST 51 U/L (14-36) H D 02/15/17 08:15 ALT 43 U/L (7-56) 02/15/17 08:15 Alkaline Phosphatase 104 U/L (38-126) 02/15/17 08:15 Total Protein 7.2 g/dL (5.8-8.3) 02/15/17 08:15 Albumin 4.6 g/dL (3.0-4.8) 02/15/17 08:15 Globulin 2.6 gm/dL 02/15/17 08:15 Albumin/Globulin Ratio 1.8 (1.1-1.8) 02/15/17 08:15 Phenytoin < 3 ug/mL (10-20) L 02/14/17 20:15 Carbamazepine < 3 ug/mL (4.0-10.0) L 02/14/17 20:15 Alcohol, Quantitative 290 mg/dL (0-10) H 02/14/17 20:15 Attending/Attestation - Attestation I have personally seen and examined this patient.: Yes I have fully participated in the care of the patient.: Yes I have reviewed all pertinent clinical information, including history, physical exam and plan: Yes
[2017-02-15 14:36] VITALS: RESP 16
--- NOTE | 2017-02-15 23:04 | CARD ---
APPROVED REPORT EKG Measurement Heart [id number] <Conclusion> Sinus tachycardia Otherwise normal ECG
== END 2017-02-15 15:03 | disposition left against medical advice (07) ==
LOC: ED 19:03 → ERH 02-15 03:01 → 3RNO 02-15 06:49
PROVIDERS: ADMIT Internal Medicine; ATTEND Internal Medicine
DX: F10.129 Alcohol abuse with intoxication, unspecified (principal); Y90.8 Blood alcohol level of 240 mg/100 ml or more; G40.909 Epilepsy, unspecified, not intractable, without status epilepticus; E11.9 Type 2 diabetes mellitus without complications; G43.909 Migraine, unspecified, not intractable, without status migrainosus; Z91.14 Patient's other noncompliance with medication regimen; S00.81XA Abrasion of other part of head, initial encounter; W10.9XXA Fall (on) (from) unspecified stairs and steps, initial encounter; Y93.89 Activity, other specified; Y92.89 Other specified places as the place of occurrence of the external cause; Z79.84 Long term (current) use of oral hypoglycemic drugs
CPT/HCPCS: 70450; 70486; 72125; 80053; 80156; 80185; 80320; 82948; 83735; 84100; 85025; 85610; 85730; 90471; 90715; 93005; 96361; 96365; 96367; 96375; 96376; 99285; G0378; J1165; J1953; J2060; J3475; J7030; J7040